=== PATIENT | female | born 1970 | race Caucasian/White ===

== ENCOUNTER 2022-03-02 19:30 | Emergency (ER) | payer OTHER ==
[2022-03-02] MEDS ORDERED: IBUPROFEN600 MG PO (23:03)
== END 2022-03-02 23:39 | disposition home or self-care (01) ==
LOC: ER1 19:30
DX: M25.531 Pain in right wrist (principal); M79.644 Pain in right finger(s); R53.1 Weakness; F17.210 Nicotine dependence, cigarettes, uncomplicated; J44.9 Chronic obstructive pulmonary disease, unspecified
CPT/HCPCS: 73110; 96372; 99284; J1885

== ENCOUNTER → 2022-06-20 | Day surgery (SDC) | payer OTHER ==
[~2022-06-20] VITALS: Ht 167.6 cm; Wt 86.6 kg
[~2022-06-20] MED LIST: ALEVE220 MG PO; CYCLOBENZAPRINE10 MG PO; DULERA 200 MCG8.8 GM INH; HYDROCODON-ACE1 EAC2 PO; IBUPROFEN600 MG PO; PRAVASTATIN SOD20 MG PO; VITAMIN B12 PO; VITAMIN E400 UNI4 PO; ZOLOFT100 MG PO; ZYRTEC10 MG PO
== END | disposition home or self-care (01) ==
LOC: OR 05:35
DX: G56.01 Carpal tunnel syndrome, right upper limb (principal); E78.5 Hyperlipidemia, unspecified; J44.9 Chronic obstructive pulmonary disease, unspecified; F41.9 Anxiety disorder, unspecified; F32.A Depression, unspecified; F17.210 Nicotine dependence, cigarettes, uncomplicated; Z79.899 Other long term (current) drug therapy
CPT/HCPCS: J0690; J1100; J2001; J2250; J2405; J2704; J3010